=== PATIENT | female | born 1955 | race Caucasian/White ===

== ENCOUNTER → 2019-03-04 08:36 | Outpatient (CLI) | payer OTHER, SELFPAY ==
--- NOTE | 2019-03-04 | DI.MG.S_ITS ---
BILATERAL DIGITAL DIAGNOSTIC MAMMOGRAM 3D/2D POST LUMPECTOMY: 03/04/2019 CLINICAL: Left breast mass. Family history of breast cancer. Personal history of bilateral breast cancer. No prior exams were available for comparison. The tissue of both breasts is heterogeneously dense. This may lower the sensitivity of mammography. Both breasts have post-operative findings. There are benign dystrophic calcifications in the surgical site in both breasts consistent with post treatment changes. The left breast demonstrates extensive dystrophic calcifications. No other significant masses, worrisome calcifications, or other findings are seen in either breast. IMPRESSION: INCOMPLETE: NEEDS ADDITIONAL IMAGING EVALUATION There is no abnormality seen in the left breast to correspond with the area of clinical concern and palpable abnormality in the lower inner quadrant, however, ultrasound is recommended which is scheduled to immediately follow this study. This exam was interpreted at Station ID: [id number]. NOTE: For mammograms, a report in lay terms will be sent to the patient. Approximately 15% of breast malignancies will not be visualized mammographically. In the management of a palpable breast mass, a negative mammogram must not discourage biopsy of a clinically suspicious lesion. Electronically Signed By: Heriberto Whitney M.D. aty/:03/04/2019 10:35:36 ACR BI-RADS Category 0: Incomplete [id number]
--- NOTE | 2019-03-04 08:41 | DI.US.S_ITS ---
ULTRASOUND OF LEFT BREAST: 03/04/2019 CLINICAL: Palpable left breast lump. Comparison is made to exam dated: 03/04/2019 [facility]. Color flow and real-time ultrasound of the left breast were performed. Hobson scale images of the real-time examination were reviewed. There is 2.5 cm x 2 cm x 2.2 cm wider than tall irregular mass in the left breast at 9 o'clock posterior depth 10 cm from the nipple. This irregular mass is hypoechoic with posterior acoustic enhancement. This mass is solid and cystic in appearance with a predominant cystic component. This correlates as palpated and with area of clinical concern. Color flow imaging demonstrates that there is vascularity present within the solid component of the mass. IMPRESSION: SUSPICIOUS OF MALIGNANCY The 2.5 cm x 2 cm x 2.2 cm wider than tall irregular, complex solid and cystic mass in the left breast is suspicious of malignancy. An ultrasound guided biopsy is recommended. Findings and recommendations were discussed with the patient by Dr. Medina. The patient agrees to undergo biopsy but is from out of state ([place] is her home). She does not want to undergo a biopsy until she returns home to [place] in April of 2019. This exam was interpreted at Station ID: [id number]. Electronically Signed By: Heriberto Whitney M.D. aty/:03/05/2019 18:16:02 letter sent: Biopsy Required Ultrasound BI-RADS: 4 Suspicious abnormality
== END ==
PROVIDERS: Visit Provider Physician Assistant
DX: R92.8 Other abnormal and inconclusive findings on diagnostic imaging of breast (principal); N63.24 Unspecified lump in the left breast, lower inner quadrant; R92.1 Mammographic calcification found on diagnostic imaging of breast; Z85.3 Personal history of malignant neoplasm of breast; Z80.3 Family history of malignant neoplasm of breast
CPT/HCPCS: 76642; 77066; G0279